=== PATIENT | male | born 1975 | race Two or more races ===

== ENCOUNTER 2017-10-29 09:22 | Day surgery (SDC) | payer BC ==
[2017-10-24 14:41] LABS: BASOPHILS % (AUTO) 0.4 % (0-1); EOSINOPHILS # (AUTO) 0.2 X10'3 (0-0.9); EOSINOPHILS % (AUTO) 2.1 % (0-6); LYMPHOCYTES # (AUTO) 2.9 X10'3 (1.1-4.8); LYMPHOCYTES % (AUTO) 41.5 % (21-51); MEAN CORPUSCULAR HEMOGLOBIN 31.3 PG (27.0-31.0); MEAN CORPUSCULAR HGB CONC 34.6 % (33.0-36.5); MEAN CORPUSCULAR VOLUME 90.4 FL (78-98); MONOCYTES # (AUTO) 0.4 X10'3 (0-0.9); NEUTROPHILS # (AUTO) 3.5 X10'3 (1.8-7.7); PRE OP HEMATOCRIT 47.6 % (42.0-52.0); PRE OP HEMOGLOBIN 16.5 g/dL (14.0-17.9); PRE OP PLATELET COUNT 175 X10'3 (140-440); RED BLOOD COUNT 5.27 X10'6 (4.70-6.10); RED CELL DISTRIBUTION WIDTH 13.9 % (11.5-14.5)
[2017-10-24 14:55] LABS: ALBUMIN 4.2 G/DL (3.4-5.0); ALBUMIN/GLOBULIN RATIO 1.1 (1.1-1.5); ALKALINE PHOSPHATASE 74 IU/L (46-116); BLOOD UREA NITROGEN 12 MG/DL (7-18); CHLORIDE 105 MMOL/L (99-107); PRE OP ALT 39 U/L (30-65); PRE OP ANION GAP 10 (8-16); PRE OP AST 21 U/L (10-37); PRE OP BILIRUB, TOTAL 0.7 MG/DL (0.0-1.0); PRE OP GLUCOSE 97 MG/DL (70-104); PRE OP SODIUM 142 MMOL/L (135-145); TOTAL CARBON DIOXIDE 27.2 MMOL/L (24-32); TOTAL PROTEIN 8.1 G/DL (6.4-8.2); eGFR 82 ML/MIN
[2017-10-29] VITALS (13 sets, daily range): BP systolic 134–223; BP diastolic 75–123
[~2017-10-29] VITALS: Ht 160 cm; Wt 87.0 kg
[~2017-10-29 09:22] MED LIST: OMEP40CA37 PO; famotidine 20mg tablet PO ONE; ringers solution, lacted 1,000 ML IV SCH
[2017-10-29] MEDS ORDERED: LIDOcaine 1% (10mg/ml) 2ml vial ONE (10:34)
[2017-10-29] MEDS ORDERED: BUPIVAcaine/PF 2.5 mg/ml (0.25%) 30ml vial ONE (11:04)
[2017-10-29] MEDS ORDERED: ceFAZolin 1000mg inj ONE (11:04)
[2017-10-29] MEDS ORDERED: fentaNYL/PF 50MCG/1 ML 2ML syringe ONE ×2 (13:11→13:30)
[2017-10-29] MEDS ORDERED: midazolam 2 mg/2 ml injection ONE (13:11)
[2017-10-29] MEDS ORDERED: sevoflurane 250ml liquid IH ONE (13:15)
[2017-10-29] MEDS ORDERED: propofol inj 20 ML IV ONE (13:23)
[2017-10-29] MEDS ORDERED: LIDOcaine 2% (20mg/ml) 5ml vial ONE (13:23)
[2017-10-29] MEDS ORDERED: rocuronium 10mg/ml inj IV ONE (13:23)
[2017-10-29] MEDS ORDERED: glycopyrrolate 0.2mg/ml inj ONE (13:43)
[2017-10-29] MEDS ORDERED: dexamethasone sod phosphate 4mg/ml inj. ONE (13:43)
[2017-10-29] MEDS ORDERED: ondansetron/PF 4mg/2ml inj ONE (13:43)
[2017-10-29] MEDS ORDERED: neostigmine methylsulfate 1 MG/ML 10ml vial ONE (13:43)
[2017-10-29] MEDS ORDERED: ringers solution, lacted 1,000 ML IV SCH (13:48)
[2017-10-29] MEDS ORDERED: meperidine/PF 50mg/ml syringe IV PRN ×3 (13:50)
[2017-10-29] MEDS ORDERED: morphine 2 MG/ML inj. syringe IV PRN (13:50)
[2017-10-29] MEDS ORDERED: proCHLORperazine 10 MG/2 ml inj IV PRN (13:50)
[2017-10-29] MEDS ORDERED: ondansetron/PF 4mg/2ml inj IV PRN (13:50)
[2017-10-29] MEDS: labetalol 5mg/ml 20ml inj. IV PRN ×2 (14:19→14:32)
[2017-10-29] MEDS ORDERED: hydrALAZINE 20mg/ml inj. IV ONE (14:40)
[2017-10-29] MEDS: morphine 2 MG/ML inj. syringe IV PRN ×2 (14:45→14:58)
[2017-10-29] MEDS ORDERED: ketorolac trometh. 30mg/ml inj. IV ONE (15:10)
[2017-10-30] MEDS ORDERED: ceFOXitin 2 GM ADDvantage bag 100 ML IV ONE (05:30)
== END 2017-10-29 16:35 | disposition home or self-care (01) ==
LOC: PAS 09:22
PROVIDERS: ATTEND Surgery
DX: K80.10 Calculus of gallbladder with chronic cholecystitis without obstruction (principal); K57.90 Diverticulosis of intestine, part unspecified, without perforation or abscess without bleeding; G47.33 Obstructive sleep apnea (adult) (pediatric); I10 Essential (primary) hypertension; Z88.3 Allergy status to other anti-infective agents; Z91.048 Other nonmedicinal substance allergy status; Z91.018 Allergy to other foods; Z98.890 Other specified postprocedural states
CPT/HCPCS: 36415; 47562; 80053; 85025; 93005; J0360; J0690; J0694; J1100; J1885; J2001; J2175; J2250; J2270; J2405; J2704; J2710; J3010; J3490; J7120; A7000

== ENCOUNTER 2025-07-19 12:08 | Emergency (ER) | payer BC ==
[~2025-07-19] VITALS: Ht 165.1 cm; Wt 90.6 kg
[~2025-07-19 12:08] MED LIST changes: +OMEP40CA21 PO; -OMEP40CA37 PO; -famotidine 20mg tablet PO ONE; -ringers solution, lacted 1,000 ML IV SCH
--- NOTE | 2025-07-19 12:21 | Physician Documentation ---
History of Present Illness Chief Complaint: Abdominal Pain Stated Complaint: SHARP PAIN LT ABD Primary Medical Doctor: Triny [facility] Patient is a very pleasant 49-year-old male that presents to the emergency department for evaluation of a hernia recently diagnosed by his physician. Agnes ent reports the pain has become significantly worse over the course of the last 3 months particularly so over the last couple of days. Patient reports his primary care provider has ordered a CT for the end of the month but patient reports since that time the pain has become worsened and his primary care provider asked him to present to the emergency department today for evaluation. Patient reports pain is worse with movement or pressing on the area and when present pain radiates up entire left side. Patient reports nausea but denies fever chills vomiting or diarrhea at this time. Patient reports bowel movements have been normal. Reports no other acute symptoms or concerns. Medication Reconciliation Allergies: Coded Allergies: iodine (Verified Allergy, Unknown, 07/19/25) Scheduled Cyclobenzaprine* (Cyclobenzaprine*), 1 TAB PO TID Lidocaine (Lidoderm), 1 PATCH TOP DAILY Lisinopril* (Lisinopril*), 1 TAB PO DAILY, (Reported) Omeprazole (Prilosec), 0.5 CAP PO DAILY, (Reported) Miscellaneous Medications Fluticasone/Salmeterol (Advair 100-50 Diskus), (Reported) Past Medical History Past Medical History: High Cholesterol, Hypertension, GERD Past Surgical History: no surgical history Alcohol Use: Occasionally Drug Use: none Lives with: Spouse, Family Lives In: Home Occupation: employed Review of Systems ROS As stated above in the HPI, otherwise all systems are reviewed and negative. Physical Exam Vital Signs: Temperature: 98.5, Source: Temporal, Heart Rate: 64, Respiratory Rate: 18, BP: 137/99, Pulse Oximetry: 99, Weight: 90.600 Oxygen Flow Rate: 0 Physical Exam VITALS: Reviewed and as above. GENERAL: Alert, nontoxic appearing, no apparent distress. RESPIRATORY: No increased work of breathing, no respiratory distress, speaking in full clear sentences, clear lung sounds in all herrera CV: Regular rate and rhythm no murmur GI: Point tenderness to left lower quadrant abdominal wall, otherwise abdomen is nontender, nondistended, no rebound, no guarding, bowel sounds present. No palpable mass present in abdomen while. SKIN: Warm and dry no ecchymosis to abdomen Progress Results/Orders Results/Orders Vital Signs 07/19/25 12:14 Temp 98.5 Pulse 64 Resp 18 B/P (MAP) 137/99 Pulse Ox 99 O2 Flow Rate 0 EKG/XRAY/CT/US/VASC/MRI CT : Impression Exam: CT ABDOMEN PELVIS Exam: CT CT ABDOMEN PELVIS History: LLQ Abd Pain Comparison Study: None TECHNIQUE: Multidetector CT of the abdomen was performed from lung bases to pubic symphysis. Imaging was performed without IV contrast. Axial, coronal and sagittal multiplanar reformats were obtained from the axial data set by the technologist. Radiation Dose Information: CT Dose: CTDI volume is 26.16 mGy. Dose-length product is 1343.7 mGy*cm FINDINGS: Bibasilar atelectasis. Partially visualized heart is unremarkable. Hepatic steatosis with heterogeneous slightly hypodense areas within the right hepatic lobe which may represent areas of fatty sparing. Spleen, pancreas and adrenal glands unremarkable. Status post cholecystectomy. Kidneys unremarkable. 1.1 x 1.2 cm diverticulum from the left posterior urinary bladder at the level of insertion of the left ureter. Otherwise, the ureter urinary bladder are unremarkable. Prostate is unremarkable. Stomach is unremarkable. Small bowel loops unremarkable. Appendix is unremarkable. Colonic diverticulosis without evidence of diverticulitis. No evidence of intraperitoneal free air or free fluid. No evidence of aortic aneurysm. Mild atherosclerotic calcification of the aorta. No significant lymphadenopathy. Small fat containing right inguinal hernia. Soft tissues are unremarkable. No evidence of acute osseous abnormalities. IMPRESSION: No evidence of Acute abdominopelvic abnormalities. Colonic diverticulosis without diverticulitis. Left posterior urinary bladder diverticulum. Significant fatty infiltration of the liver with areas of right hepatic lobe slightly dense tissue which may represent areas of fatty sparing. MRI with contrast may be considered for further evaluation. Electronically Signed by:CONCHA CR DO Date & Time: 07/19/251955 Dictated by: CONCHA CR DO Dictation date and time: 07/19/25 8414 I have reviewed and agree with the radiology report. I have reviewed and interpreted the imaging as: No intraperitoneal free air, no air-fluid levels, no hernia observed Medical Decision Making Additional information obtaine: N/A Findings This 49-year-old male presented to the emergency department for evaluation of left lower quadrant point tenderness that has been worsening over the last three months though worse in the last several days, pain was worse with movement and on physical exam was point tenderness to the abdominal wall as there was no t enderness to palpation to other areas of the abdomen including tangential palpation of the affected area, it is reassuring patient was otherwise well- appearing with stable vital signs and lab work without significant abnormality. Additionally it was reassuring patient reported no nausea vomiting, diarrhea, fever, chills or bloody stools. With shared decision-making patient will be discharged prior to formal CT results as my initial review and review by attending ED MD did not demonstrate evidence of surgical emergency. Patient additionally reported chronic left-sided thoracic back pain that has been worse since his abdominal pain started given he is sleeping in different positions to guard the tender area which he believes he is causing his back pain to get worse, patient reported the pain as a muscle spasm type pain and is requesting a muscle relaxer as this is helped in the past. As patient is well-appearing and had relatively benign physical exam he is appropriate for outpatient follow up, patient to be discharged to follow up with the primary care provider as soon as possible for referral to surgeon for repair of possible hernia as diagnosed by his primary care provider. Patient was discharged with careful return to care precautions, follow up instructions, and home care instructions which he verbalized understanding of. Upon review of formal CT report there was no evidence of acute intra abdominal process though also no evidence of hernia including no incarcerated or strangulated hernia. Differential Dx:Considerations: Appendicitis, Bowel obstruction, Constipation, Diverticular disease, Esophageal rupture, Gastritis/PUD, Gastroenteritis, GI hemorrhage, Hernia, Inflammatory BD, Ischemic bowel, Pancreatitis, Testicular torsion, Trauma, intraabdominal, Urinary obstruction, Urinary tract infection, Urolithiasis Departure Time of Disposition: 18:29 Disposition: 01 HOME / SELF CARE / HOMELESS Impression: Primary Impression: Abdominal pain Qualified Codes: R10.32 - Left lower quadrant pain Condition: Improved Discharge Instructions: Hernia, Adult Additional Instructions: Follow up with your primary care provider for referral to your surgeon. Please follow up with your primary care provider in the next few days. Please return to the emergency department for any new or worsening concerning symptoms. Please use the Flexeril as needed for your back pain, do not mix this medication with other medications that cause drowsiness including [place] or alcohol. You may also use the prescribed Lidoderm patches on your area of back pain. Referrals: NO PRIMARY CARE PROVIDER (PCP) Prescriptions Lidocaine (Lidoderm) 5 % Adh..patch 1 PATCH TOP DAILY for 10 Days, #10 PATCH 0 Refills may wear up to 12 hours Prov: MELANI MISHRAP 07/19/25 Cyclobenzaprine* (Cyclobenzaprine*) 10 Mg Tablet 1 TAB PO TID, #15 TAB Prov: MELANI MISHRA [facility] 07/19/25 Education Educated: Patient Educated regarding: diagnosis, treatment, prognosis, need for follow up Signature Scribe Signature: No scribe Attestation: The note accurately reflects work and decisions made by me.BRIGITTE Rawls 07/20/25 02:00 YANCI PAGE [facility] Jul 19, 2025 12:20 MELANI MISHRA [facility] Jul 19, 2025 14:26
[2025-07-19] MEDS ORDERED: ADV50100 (12:52)
[2025-07-19] MEDS ORDERED: LISI40TA20 PO (12:52)
[2025-07-19 13:03] LABS: LEUKOCYTE ESTERASE ,URINE NEGATIVE (Neg); NITRITES, URINE NEGATIVE (Neg); OCCULT BLOOD,URINE NEGATIVE (Neg)
[2025-07-19 13:04] LABS: MEAN PLATELET VOLUME 10.0 FL (7.4-10.4); RED CELL DISTRIBUTION WIDTH 13.7 % (11.5-14.5)
[2025-07-19 13:19] LABS: CREATININE 1.02 MG/DL (0.60-1.10); TOTAL CARBON DIOXIDE 24.0 MMOL/L (24-32); eCRCL 75 ML/MIN; eGFR 77 ML/MIN
[2025-07-19 13:21] LABS: UA COLLECTION TYPE NON-SPECIFIED
[2025-07-19] MEDS: HYDROcodone/acetaminophen 5mg/325mg tablet PO ONE (17:20)
[2025-07-19] MEDS ORDERED: LIDO-52 TOP (18:31)
[2025-07-19] MEDS ORDERED: CYCL-1 PO (18:31)
[2025-07-19 18:40] VITALS: BP 151/94; PULSE 16; RESP 16; TEMP 97.7; O2SAT 97
--- NOTE | 2025-07-19 19:58 | RADIOLOGY REPORT ---
Exam: CT CT ABDOMEN PELVIS History: LLQ Abd Pain Comparison Study: None TECHNIQUE: Multidetector CT of the abdomen was performed from lung bases to pubic symphysis. Imaging was performed without IV contrast. Axial, coronal and sagittal multiplanar reformats were obtained from the axial data set by the technologist. Radiation Dose Information: CT Dose: CTDI volume is 26.16 mGy. Dose-length product is 1343.7 mGy*cm FINDINGS: Bibasilar atelectasis. Partially visualized heart is unremarkable. Hepatic steatosis with heterogeneous slightly hypodense areas within the right hepatic lobe which may represent areas of fatty sparing. Spleen, pancreas and adrenal glands unremarkable. Status post cholecystectomy. Kidneys unremarkable. 1.1 x 1.2 cm diverticulum from the left posterior urinary bladder at the level of insertion of the left ureter. Otherwise, the ureter urinary bladder are unremarkable. Prostate is unremarkable. Stomach is unremarkable. Small bowel loops unremarkable. Appendix is unremarkable. Colonic diverticulosis without evidence of diverticulitis. No evidence of intraperitoneal free air or free fluid. No evidence of aortic aneurysm. Mild atherosclerotic calcification of the aorta. No significant lymphadenopathy. Small fat containing right inguinal hernia. Soft tissues are unremarkable. No evidence of acute osseous abnormalities. IMPRESSION: No evidence of Acute abdominopelvic abnormalities. Colonic diverticulosis without diverticulitis. Left posterior urinary bladder diverticulum. Significant fatty infiltration of the liver with areas of right hepatic lobe slightly dense tissue which may represent areas of fatty sparing. MRI with contrast may be considered for further evaluation.
== END 2025-07-19 18:37 | disposition home or self-care (01) ==
LOC: ER 12:09
DX: R10.32 Left lower quadrant pain (principal); I10 Essential (primary) hypertension; K21.9 Gastro-esophageal reflux disease without esophagitis; E78.00 Pure hypercholesterolemia, unspecified; Z88.8 Allergy status to other drugs, medicaments and biological substances; Z72.89 Other problems related to lifestyle; Z79.899 Other long term (current) drug therapy
CPT/HCPCS: 36415; 74176; 80053; 81003; 83690; 85025; 99285